=== PATIENT | female | born 1945 | race Caucasian/White ===

== ENCOUNTER 2021-03-30 19:31 | Emergency (ER) | payer MEDICARE, OTHER ==
[~2021-03-30] VITALS: Ht 157 cm; Wt 68.0 kg
[~2021-03-30 19:31] MED LIST: ASP81CT
[2021-03-30] MEDS ORDERED: NS IV 1000 ML 1,000 ML IV SCH (20:15)
[2021-03-30] MEDS ORDERED: ONDANSETRON 4 MG/2 ML (SDV) Z0FRAN IVP ONE (20:30)
[2021-03-30 20:38] LABS: BASOPHILS % (AUTO) 0 % (0-10); EOSINOPHILS % (AUTO) 0 % (0-10); HEMATOCRIT 41 % (35-52); HEMOGLOBIN 13.1 g/dL (11.5-16.0); LYMPHOCYTES # (AUTO) 0.8 10^3/uL (1.0-4.0); LYMPHOCYTES % (AUTO) 26 % (12-44); MEAN CORPUSCULAR HEMOGLOBIN 28 pg (25-34); MEAN CORPUSCULAR HGB CONC 32 g/dL (32-36); MEAN CORPUSCULAR VOLUME 88 fL (80-99); MEAN PLATELET VOLUME 10.3 fL (9.0-12.2); MONOCYTES # (AUTO) 0.4 10^3/uL (0.0-1.0); MONOCYTES % (AUTO) 13 % (0-12); NEUTROPHILS # (AUTO) 1.8 10^3/uL (1.8-7.8); NEUTROPHILS % (AUTO) 59 % (42-75); PLATELET COUNT 154 10^3/uL (130-400)
[2021-03-30 20:51] LABS: ALBUMIN 3.6 GM/DL (3.2-4.5); CHLORIDE 103 MMOL/L (98-107); SODIUM 141 MMOL/L (135-145)
[2021-03-30 20:53] LABS: CALCIUM 8.7 MG/DL (8.5-10.1)
[2021-03-30 20:54] LABS: GLUCOSE 73 MG/DL (70-105); TOTAL PROTEIN 6.8 GM/DL (6.4-8.2)
[2021-03-30 20:55] LABS: BILIRUBIN,TOTAL 0.3 MG/DL (0.1-1.0); CARBON DIOXIDE 23 MMOL/L (21-32); FIBRIN DEGRADATION PRODUCTS 1.24 UG/ML (0.00-0.49); INR 0.9 (0.8-1.4); PROTHROMBIN TIME PATIENT 12.8 SEC (12.2-14.7)
[2021-03-30 20:57] LABS: ALKALINE PHOSPHATASE 86 U/L (40-136); CREATININE SERUM 0.72 MG/DL (0.60-1.30); ERYTHROCYTE SEDIMENTATION RATE 21 MM/HR (0-30); GFR ESTIMATED > 60
[2021-03-30 20:58] LABS: BUN/CREATININE RATIO 18
[2021-03-30 21:00] LABS: ALANINE AMINOTRANSFERASE 33 U/L (0-55); MAGNESIUM 1.8 MG/DL (1.6-2.4)
[2021-03-30 21:01] LABS: CREATINE KINASE 124 U/L (29-168)
[2021-03-30 21:09] LABS: CREATINE KINASE MB 0.5 NG/ML (<6.6)
--- NOTE | 2021-03-30 21:28 | Diagnostic Imaging Report ---
INDICATION: COVID positive EXAMINATION: Chest 03/30/2021 COMPARISON: 10/21/2009 FINDINGS: There are patchy bilateral airspace opacities throughout both lungs consistent with the history of COVID and secondary infiltrates. The heart is stable. Pulmonary vasculature unremarkable. No pneumothorax or effusions. IMPRESSION: 1. Scattered bilateral infiltrates. Dictated by: Dictated on workstation # [id number]
[2021-03-30] MEDS ORDERED: HOLD METFORMIN - RECEIVED CONTRAST 20 ML VIAL IV SCH (21:45)
[2021-03-30] MEDS ORDERED: IOHEXOL 350 MG/ML 100 ML (OMNIPAQUE 350) VIAL IV ONE (21:45)
[2021-03-30] MEDS ORDERED: NS 100 ML (IVPB) BAG IV ONE (21:45)
[2021-03-30] MEDS ORDERED: CATHETER FLUSH 10 ML SYR IV PRN (21:45)
--- NOTE | 2021-03-30 22:14 | Diagnostic Imaging Report ---
PROCEDURE: CT angiography of the chest with contrast, 03/30/2021. TECHNIQUE: Multiple contiguous axial images were obtained through the chest after uneventful bolus administration of intravenous contrast. 3D reconstructed CTA MIP acquisitions were also performed. Auto Exposure Controls were utilized during the CT exam to meet ALARA standards for radiation dose reduction. INDICATION: Covid positive. Suspect possible pulmonary embolus. FINDINGS: There are no central or proximal segmental pulmonary emboli. The thoracic aorta unremarkable. There is diffuse mediastinal and right hilar adenopathy. There are diffuse patchy peripheral airspace opacities throughout both lungs consistent with the history of Covid. There are no pericardial or pleural effusions. Visualized upper abdomen demonstrates fatty infiltration throughout the liver. No acute process in the upper abdomen. There is no acute osseous abnormality. IMPRESSION: 1. No evidence for pulmonary embolus. 2. Diffuse scattered bilateral peripheral infiltrates consistent with the history of Covid. 3. Lymphadenopathy which is likely reactive but should be followed to assure resolution. Dictated by: Dictated on workstation # [id number]
--- NOTE | 2021-03-30 22:30 | ED Respiratory ---
General Chief Complaint: Cough/Cold/Flu Symptoms Stated Complaint: WONT EAT,COUGH,WEAKNESS Nursing Triage Note: C/O COUGH, FEVER, CHILLS, NAUSEA, VOMITING, AND ALL OVER BODY PAIN FOR 3 WEEKS. VERBALIZES SHE HAS BEEN UNABLE TO KEEP ANY FOOD OR FLUIDS DOWN FOR 3 DAYS. Source: patient History of Present Illness Date Seen by Provider: Mar 30, 2021 Time Seen by Provider: 18:07 Initial Comments PT ARRIVES VIA POV FROM HOME PT STATES SHE HAS BEEN SICK FOR THE LAST 3 WEEKS SYMPTOMS ARE NO DIFFERENT TONIGHT IN ANY WAY HAS NOT TAKEN ANYTHING FOR SYMPTOMS AT ANY TIME STATES HER FRIEND "MADE ME COME HERE" C/O NON-PRODUCTIVE COUGH AND NASAL CONGESTION C/O SLIGHT SHORTNESS OF BREATH C/O SLIGHT CHEST DISCOMFORT THAT COMES AND GOES--IS NOT PRESENT NOW C/O BODY ACHES C/O FATIGUE C/O DECREASED APPETITE C/O NAUSEA AND VOMITING--EMESIS X 2 TODAY C/O DIARRHEA. LAST BM WAS 2 DAYS AGO NO ABDOMINAL PAIN NO URINARY SYMPTOMS. VOIDING A NORMAL AMOUNT, LAST VOID WAS JUST PRIOR TO ARR IVAL NO LOSS OF TASTE OR SMELL NO SORE THROAT HAS NOT CHECKED TEMP HAS NOT HAD COVID-19 VACCINE DENIES ANY CHRONIC MEDICAL ILLNESSES AND STATES SHE DOES NOT TAKE ANY MEDICATIONS PT IS NON-SMOKER PCP: DR. MACIAS IN [place] Allergies and Home Medications Allergies Coded Allergies: No Known Allergies (Unverified Allergy, Mild, 10/21/09) Home Medications Aspirin 325 Mg Tablet, 325 MG PO DAILY Prescribed by: FÁTIMA ROSALES on 03/30/212252 Azithromycin 500 Mg Tablet, 500 MG PO DAILY Prescribed by: FÁTIMA ROSALES on 03/30/212252 Benzonatate 100 Mg Capsule, 200 MG PO TID Prescribed by: FÁTIMA ROSALES on 03/30/212252 Cefdinir 300 Mg Capsule, 300 MG PO BID Prescribed by: FÁTIMA ROSALES on 03/30/212252 Guaifenesin/Dextromethorphan 1 Each Tbmp.12hr, 1 EACH PO BID Prescribed by: FÁTIMA ROSALES on 03/30/212252 Ondansetron 8 Mg Tab.rapdis, 8 MG PO Q4H PRN for NAUSEA/VOMITING Prescribed by: FÁTIMA ROSALES on 03/31/21 0350 Patient Home Medication List Home Medication List Reviewed: Yes Review of Systems Review of Systems Constitutional: see HPI, malaise, weakness EENTM: see HPI, nose congestion Respiratory: see HPI, cough, short of breath Cardiovascular: see HPI, chest pain; No edema, No syncope, No vascular heart diseas Gastrointestinal: see HPI; No abdominal pain; diarrhea, loss of appetite, nausea, vomiting Genitourinary: no symptoms reported; No decreased output Musculoskeletal: see HPI (BODY ACHES) Skin: no symptoms reported Psychiatric/Neurological: See HPI, Headache Hematologic/Lymphatic: No Symptoms Reported Immunological/Allergic: no symptoms reported Past Tnyrpba-[id number]-Kvppwx Hx Past Med/Social Hx: Reviewed and Corrections made Patient Social History Alcohol Use: Denies Use Drug of Choice: DENIES Smoking Status: Never a Smoker Recent Infectious Disease Expo: No Recent Hopitalizations: Yes Past Medical History Surgeries: Yes (HIATAL HERNIA REPAIR; ? URETHRAL DILATION ? ) Appendectomy, Section, Gallbladder, Tubal Ligation Respiratory: No Cardiac: Yes (NO DX) Chronic Edema/Swelling, High Cholesterol, Irregular Heartbeat Neurological: No Reproductive Disorders: Yes HOME [employer] EXP[employer] History: Hysterectomy, Tubal Ligation Genitourinary: Yes (? URETHRAL DILATION ? ) Gastrointestinal: Yes (S/P HIATAL HERNIA REPAIR) Gastroesophageal Reflux, Hiatal Hernia Musculoskeletal: Yes (osteoarthritis) Arthritis, Chronic Back Pain Endocrine: No HEENT: No Cancer: No Psychosocial: No Blood Disorders: No Physical Exam Vital Signs - First Documented Capillary Refill : Less Than 3 Seconds Height: '" Weight: lbs. oz. 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, no motor/sensory deficits, alert, normal mood/affect, oriented x 3 Skin: normal color, warm/dry; No rash Focused Exam Lactate Level 03/30/21 20:40: Lactic Acid Level 0.80 Lactic Acid Level Laboratory Tests Test 03/30/21 20:40 Lactic Acid Level 0.80 MMOL/L (0.50-2.00) Progress/Results/Core Measures Suspected Sepsis Recent Fever Within 48 Hours: Yes Infection Criteria Present: Suspected New Infection New/Unexplained Altered Menta: No Sepsis Screen: Possible Severe Sepsis Risk SIRS Temperature: Pulse: 94 Respiratory Rate: 20 Laboratory Tests 03/30/21 20:30: White Blood Count 3.0L Blood Pressure 141 /80 Mean: 100 03/30/21 20:40: Lactic Acid Level 0.80 Laboratory Tests 03/30/21 20:30: Creatinine 0.72, INR Comment 0.9, Platelet Count 154, Total Bilirubin 0.3 Results/Orders Lab Results Laboratory Tests Test 03/30/21 20:24 03/30/21 20:30 03/30/21 20:40 Range/Units Influenza Type A (RT-PCR) Not Detected Not Detecte Influenza Type B (RT-PCR) Not Detected Not Detecte SARS-CoV-2 RNA (RT-PCR) Detected H Not Detecte White Blood Count 3.0 L 4.3-11.0 10^3/uL Red Blood Count 4.64 3.80-5.11 10^6/uL Hemoglobin 13.1 11.5-16.0 g/dL Hematocrit 41 35-52 % Mean Corpuscular Volume 88 80-99 fL Mean Corpuscular Hemoglobin 28 25-34 pg Mean Corpuscular Hemoglobin Concent 32 32-36 g/dL Red Cell Distribution Width 12.9 10.0-14.5 % Platelet Count 154 130-400 10^3/uL Mean Platelet Volume 10.3 9.0-12.2 fL Immature Granulocyte % (Auto) 1 % Neutrophils (%) (Auto) 59 42-75 % Lymphocytes (%) (Auto) 26 12-44 % Monocytes (%) (Auto) 13 H 0-12 % Eosinophils (%) (Auto) 0 0-10 % Basophils (%) (Auto) 0 0-10 % Neutrophils # (Auto) 1.8 1.8-7.8 10^3/uL Lymphocytes # (Auto) 0.8 L 1.0-4.0 10^3/uL Monocytes # (Auto) 0.4 0.0-1.0 10^3/uL Eosinophils # (Auto) 0.0 0.0-0.3 10^3/uL Basophils # (Auto) 0.0 0.0-0.1 10^3/uL Immature Granulocyte # (Auto) 0.0 0.0-0.1 10^3/uL Erythrocyte Sedimentation Rate 21 0-30 MM/HR Prothrombin Time 12.8 12.2-14.7 SEC INR Comment 0.9 0.8-1.4 Activated Partial Thromboplast Time 21 L 24-35 SEC D-Dimer 1.24 H 0.00-0.49 UG/ML Sodium Level 141 135-145 MMOL/L Potassium Level 4.0 3.6-5.0 MMOL/L Chloride Level 103 98-107 MMOL/L Carbon Dioxide Level 23 21-32 MMOL/L Anion Gap 15 H 5-14 MMOL/L Blood Urea Nitrogen 13 7-18 MG/DL Creatinine 0.72 0.60-1.30 MG/DL Estimat Glomerular Filtration Rate > 60 BUN/Creatinine Ratio 18 Glucose Level 73 70-105 MG/DL Calcium Level 8.7 8.5-10.1 MG/DL Corrected Calcium 9.0 8.5-10.1 MG/DL Magnesium Level 1.8 1.6-2.4 MG/DL Total Bilirubin 0.3 0.1-1.0 MG/DL Aspartate Amino Transf (AST/SGOT) 56 H 5-34 U/L Alanine Aminotransferase (ALT/SGPT) 33 0-55 U/L Alkaline Phosphatase 86 40-136 U/L Lactate Dehydrogenase 366 H 125-220 U/L Total Creatine Kinase 124 29-168 U/L Creatine Kinase MB 0.5 <6.6 NG/ML Myoglobin 21.7 10.0-92.0 NG/ML C-Reactive Protein High Sensitivity 6.15 H 0.00-0.50 MG/DL B-Type Natriuretic Peptide 107.4 H <100.0 PG/ML Total Protein 6.8 6.4-8.2 GM/DL Albumin 3.6 3.2-4.5 GM/DL Procalcitonin 0.04 <0.10 NG/ML Lactic Acid Level 0.80 0.50-2.00 MMOL/L My Orders Orders - FÁTIMA ROSALES DO Cbc With Automated Diff (03/30/21 20:07) Comprehensive Metabolic Panel (03/30/21 20:07) Procalcitonin (Pct) (03/30/21 20:07) Hs C Reactive Protein (03/30/21 20:07) Erythrocyte Sedimentation Rate (03/30/21 20:07) LDH (03/30/21 20:07) Blood Culture (03/30/21 20:07) Ekg Tracing (03/30/21 20:07) Influenza A And B By Pcr (03/30/21 20:07) Chest 1 View, Ap/Pa Only (03/30/21 20:07) Covid 19 Inhouse Test (03/30/21 20:07) BNP (03/30/21 20:07) Creatine Kinase (03/30/21 20:07) Creatine Kinase Mb (03/30/21 20:07) Lactic Acid Analyzer (03/30/21 20:07) Magnesium (03/30/21 20:07) Myoglobin Serum (03/30/21 20:07) O2 (03/30/21 20:07) Monitor-Rhythm Ecg Trace Only (03/30/21 20:07) Ed Iv/Invasive Line Start (03/30/21 20:07) Ns Iv 1000 Ml (Sodium Chloride 0.9%) (03/30/21 20:15) Ondansetron Injection (Zofran Injectio (03/30/21 20:30) Fibrin Degradation Products (03/30/21 20:38) Protime With Inr (03/30/21 20:38) Partial Thromboplastin Time (03/30/21 20:38) Ct Angio Chest W (03/30/21 21:17) Iohexol Injection (Omnipaque 350 Mg/Ml 1 (03/30/21 21:45) Received Contrast (Hold Metformin- Contr (03/30/21 21:45) Sodium Chloride Flush (Catheter Flush Sy (03/30/21 21:45) Ns (Ivpb) (Sodium Chloride 0.9% Ivpb Bag (03/30/21 21:45) Ceftriaxone (Rocephin) (03/30/21 22:45) Azithromycin Tablet (Zithromax Tablet) (03/30/21 22:45) Medications Given in ED Current Medications Medications Dose Ordered Sig/Rebecca Route Start Time Stop Time Status Last Admin Dose Admin Azithromycin 500 mg ONCE ONCE PO 03/30/21 22:45 03/30/21 22:46 DC 03/30/21 23:06 500 MG Ceftriaxone Sodium 1000 mg/ Sterile Water 10 ml @ 200 mls/hr ONCE ONCE IV 03/30/21 22:45 03/30/21 22:47 DC 03/30/21 23:06 200 MLS/HR Iohexol 100 ml ONCE ONCE IV 03/30/21 21:45 03/30/21 21:46 DC 03/30/21 21:54 63 ML Ondansetron HCl 4 mg ONCE ONCE IVP 03/30/21 20:30 03/30/21 20:31 DC 03/30/21 20:32 4 MG Sodium Chloride 10 ml NEEDED PRN IV 03/30/21 21:45 03/30/21 23:10 DC 03/30/21 21:54 10 ML Sodium Chloride 100 ml ONCE ONCE IV 03/30/21 21:45 03/30/21 21:46 DC 03/30/21 21:54 80 ML Vital Signs/I&O 03/30/21 03/30/21 03/30/21 03/30/21 20:10 20:10 20:10 23:07 Temp 37.3 Pulse 94 84 Resp 20 18 B/P (MAP) 141/80 (100) 132/78 (100) Pulse Ox 97 97 96 O2 Delivery Room Air Room Air Room Air Room Air Capillary Refill : Less Than 3 Seconds Blood Pressure Mean: 100 Progress Note : Progress Note PLACED IN ISOLATION ROOM PPE WORN AT ALL TIMES COVID-19 TESTING DONE NO HYPOXIA NO DYSPNEA NO ABNORMAL VITALS NO COUGH NO VOMITING OR DIARRHEA NO CHEST PAIN UNEVENTFUL ER STAY GIVEN IV FLUIDS, ZOFRAN PT DOES NOT MEET ADMISSION CRITERIA--NO HYPOXIA, NO DYSPNEA, NO SIGNIFICANT DEHYDRATION, NO P.E. DOES NOT MEET CRITERIA FOR OUTPATIENT BAM INFUSION EITHER ECG Initial ECG Impression Date: Mar 30, 2021 Initial ECG Impression Time: 20:44 Initial ECG Rate: 88 Initial ECG Rhythm: Normal Sinus (WITH PAC'S) Diagnostic Imaging Comments CXR--PER RADIOLOGIST REPORT FINDINGS: There are patchy bilateral airspace opacities throughout both lungs consistent with the history of COVID and secondary infiltrates. The heart is stable. Pulmonary vasculature unremarkable. No pneumothorax or effusions. IMPRESSION: 1. Scattered bilateral infiltrates. CT CHEST ANGIOGRAM--PER RADIOLOGIST REPORT AT 2223 FINDINGS: There are no central or proximal segmental pulmonary emboli. The thoracic aorta unremarkable. There is diffuse mediastinal and right hilar adenopathy. There are diffuse patchy peripheral airspace opacities throughout both lungs consistent with the history of Covid. There are no pericardial or pleural effusions. Visualized upper abdomen demonstrates fatty infiltration throughout the liver. No acute process in the upper abdomen. There is no acute osseous abnormality. IMPRESSION: 1. No evidence for pulmonary embolus. 2. Diffuse scattered bilateral peripheral infiltrates consistent with the history of Covid. 3. Lymphadenopathy which is likely reactive but should be followed to assure resolution. Reviewed: Reviewed by Me Departure Impression Primary Impression: Pneumonia due to COVID-19 virus Disposition: HOME, SELF-CARE Condition: Stable Departure-Patient Inst. Decision time for Depature: 22:25 Referrals: NO,LOCAL PHYSICIAN (PCP/Family) Primary Care Physician Patient Instructions: Atypical Pneumonia (Mycoplasma and Viral) (DC), COVID-19 Overview, Recovery After COVID-19, Preventing the Spread of an Infectious Disease Add. Discharge Instructions: QUARANTINE YOURSELF AND CLOSE CONTACTS FOR 2 WEEKS--NO ONE ENTERS OR LEAVES YOUR HOME FOR THE NEXT 2 WEEKS, EXCEPT FOR YOU TO GO TO DR. APPOINTMENT TYLENOL AND MOTRIN NEEDED FOR PAIN OR FEVER LOTS OF CLEAR LIQUIDS FOLLOW UP WITH YOUR DR THIS WEEK FOR FURTHER CARE, RETURN TO ER IF WORSE All discharge instructions reviewed with patient and/or family. Voiced understanding. Scripts Ondansetron (Ondansetron Odt) 8 Mg Tab.rapdis 8 MG PO Q4H PRN for NAUSEA/VOMITING, #10 TAB Prov: JOAQUIN ROSALESA K DO 03/31/21 Aspirin (Aspirin) 325 Mg Tablet 325 MG PO DAILY, #30 TAB Prov: BOBBYJOAQUINA K DO 03/30/21 Guaifenesin/Dextromethorphan (Mucinex Dm ER 1,200-60 mg Tab) 1 Each Tbmp.12hr 1 EACH PO BID, #20 EA Prov: BOBBYJOAQUINA K DO 03/30/21 Benzonatate (TESSALON PERLES) 100 Mg Capsule 200 MG PO TID, #30 CAP Prov: BOBBYFÁTIMA K DO 03/30/21 Azithromycin (Zithromax) 500 Mg Tablet 500 MG PO DAILY for 5 Days, #5 TAB Prov: BOBBYJOAQUINA K DO 03/30/21 Cefdinir (Cefdinir) 300 Mg Capsule 300 MG PO BID, #20 CAP Prov: FÁTIMA ROSALES DO 03/30/21 FÁTIMA ROSALES DO Mar 30, 2021 22:30
[2021-03-30] MEDS ORDERED: AZITHROMYCIN 250 MG TAB (ZITHROMAX) PO ONE (22:45)
[2021-03-30] MEDS ORDERED: cefTRIAXone 1,000 MG in WATER (STERILE) FOR INJECTION 10 ML IV ONE (22:45)
[2021-03-30] MEDS ORDERED: CEFD300C3 PO (22:53)
[2021-03-30] MEDS ORDERED: AZIT500T PO (22:53)
[2021-03-30] MEDS ORDERED: ASPI-808 PO (22:53)
[2021-03-30] MEDS ORDERED: GUAI1TBM19 PO (22:53)
[2021-03-30] MEDS ORDERED: BENZ100C18 PO (22:53)
[2021-03-30 23:07] VITALS: BP 132/78
[2021-03-31] MEDS ORDERED: ONDA8TAB13 PO (03:50)
== END 2021-03-30 23:10 | disposition home or self-care (01) ==
LOC: EDUNIT# 19:31 → ER 19:34
DX: U07.1 COVID-19 (principal); J12.82 Pneumonia due to coronavirus disease 2019
CPT/HCPCS: 36415; 71045; 71275; 80053; 82550; 82553; 83605; 83615; 83735; 83874; 83880; 84145; 85025; 85379; 85610; 85652; 85730; 86141; 87040; 87636; 93005; 93041; 96361; 96374; 96375